=== PATIENT | female | born 1995 | race Caucasian/White ===

== ENCOUNTER 2017-08-12 21:53 | Emergency (ER) | payer BC ==
[~2017-08-12] VITALS: Ht 160 cm; Wt 56.8 kg
[~2017-08-12 21:53] MED LIST: ORTHO TRI-CYCLE1 TA1 PO
[2017-08-12 22:01] VITALS: BP 126/80; PULSE 76; TEMP 98.5
[2017-08-12] MEDS ORDERED: OXYCODONE H5 MG/5 ML PO (22:04)
[2017-08-12] MEDS ORDERED: ADDERALL XR20 MG PO (22:05)
== END 2017-08-12 23:11 | disposition home or self-care (01) ==
LOC: COL.ER 21:53
DX: J95.831 Postprocedural hemorrhage of a respiratory system organ or structure following other procedure (principal); Z90.89 Acquired absence of other organs